=== PATIENT | female | born 1950 ===

== ENCOUNTER 2021-08-03 07:22 | Day surgery (SDC) | payer OTHER | END 2021-08-03 14:05 | disposition home or self-care (01) | LOC: AMB-ENDOS 07:22 | PROVIDERS: ATTEND Colon & Rectal Surgery | DX: K63.5 Polyp of colon (principal); K64.0 First degree hemorrhoids; K52.89 Other specified noninfective gastroenteritis and colitis; Z20.822 Contact with and (suspected) exposure to COVID-19 ==